=== PATIENT | male | born 1940 | race Caucasian/White ===

== ENCOUNTER 2025-06-22 12:16 | Day surgery (SDC) | payer MEDICARE ==
[2025-06-18 10:49] LABS: MEAN PLATELET VOLUME 7.0 FL (7.4-10.4); RED CELL DISTRIBUTION WIDTH 15.2 % (11.5-14.5)
[2025-06-18 10:57] LABS: APTT 32 SECONDS (22-32); INR 1.2 INR
[2025-06-18 11:00] LABS: CHOL/HDL RATIO 2.1 (0.00-4.99); CREATININE 0.99 MG/DL (0.60-1.10); LDL CHOLESTEROL 56 MG/DL (50-100); TOTAL CARBON DIOXIDE 33.7 MMOL/L (24-32); eGFR 72 ML/MIN
[2025-06-22] VITALS (9 sets, daily range): BP systolic 130–145; BP diastolic 62–75; PULSE 47–55; RESP 13–18; TEMP 97.4; O2SAT 90–96
[~2025-06-22] VITALS: Ht 185.4 cm; Wt 62.2 kg
--- NOTE | 2025-06-22 13:05 | ELECTROCARDIOGRAPH REPORT ---
[facility] Test Date: 2025-06-22 Test Time: 12:48:15 Pat Name: MARISSA CHRISTINE Department: PRE/OP CARDIOLOGY Patient ID: [facility]-[id number] Room: Gender: M Clinical Education Consultant: LIZZY : 1940 Requested By: HORACIO YOUSSEF Order Number: [id number] Reading MD: Dr. ROBIN Taylor Measurements Intervals [place] Rate: 43 P: 0 NM: 0 QRS: 86 QRSD: 127 T: 33 QT: 498 QTc: 422 Interpretive Statements A-flutter/fibrillation w/ complete AV block IVCD, consider atypical RBBB Electronically Signed On 06-22-2025 18:49:[address] ROBIN Taylor Please click the below link to view image of tracing.
[2025-06-22] MEDS ORDERED: MELA5CAP PO (13:24)
[2025-06-22] MEDS ORDERED: VITA-268 PO (13:24)
[2025-06-22] MEDS ORDERED: APIX5TAB3 PO (13:24)
[2025-06-22] MEDS ORDERED: verapamil 2.5 mg/ml inj IV ONE (15:15)
[2025-06-22] MEDS ORDERED: LIDOcaine 1% (10mg/ml) 2ml vial ONE (15:15)
[2025-06-22] MEDS ORDERED: heparin 1,000unit/ml 10ml vial 10 ML ONE (15:15)
[2025-06-22] MEDS ORDERED: nitroGLYCERIN 500mcg/5mL D5W 5 ML IV ONE (15:16)
[2025-06-22] MEDS ORDERED: midazolam 1 mg/ML 2ml injection ONE (15:36)
[2025-06-22] MEDS ORDERED: fentaNYL/PF 50MCG/1 ML 2ML syringe ONE (15:36)
[2025-06-22] MEDS ORDERED: LIDOcaine 1% 30ml preserv. free vial ONE (15:55)
[2025-06-22] MEDS: ondansetron/PF 4mg/2ml inj ONE (16:54)
[2025-06-22] MEDS ORDERED: HYDROcodone/acetaminophen 10/325mg tab PO PRN (17:00)
[2025-06-22] MEDS ORDERED: ondansetron/PF 4mg/2ml inj IV PRN (17:00)
[2025-06-22] MEDS ORDERED: OXAZEpam 15mg capsule PO PRN (17:00)
[2025-06-22] MEDS ORDERED: HYDROcodone/acetaminophen 5mg/325mg tablet PO PRN (17:00)
--- NOTE | 2025-07-18 09:04 | CARDIOLOGY REPORT ---
DATE OF SERVICE: 06/22/2025 DICTATING PHYSICIAN: Karli Garrett MD CARDIAC CATHETERIZATION REPORT DATE OF STUDY: 06/22/2025 PROCEDURES: * Access to the right radial artery. * Access to the right common femoral artery. * Aortic root angiography. * Selective coronary angiography. * Left ventriculography. * Conscious sedation monitoring time for 60 minutes. INDICATION: * Ascending aortic aneurysm. * Abnormal nuclear stress test. PHYSICIAN: Gilberto Garrett MD DESCRIPTION OF PROCEDURE: Access to the right radial artery was obtained. A catheter was advanced under fluoroscopic guidance into the ascending aorta and attempt at engaging the left main coronary artery was made with multiple catheters, but because of the patient's ascending aortic aneurysm, difficulty was encountered. Angiography revealed an enlarged ascending aorta. Access to the right femoral artery was then obtained.. Using a pigtail catheter followed by a JL4 and a JR4 catheter, selective coronary angiography was performed. HEMODYNAMICS: For the patient's hemodynamics, please refer to the event log. Left ventricular end diastolic pressure was 7 mmHg. There was no significant gradient across the aortic valve on catheter pullback. FINDINGS: The left main coronary artery is a short caliber vessel with mild disease. The left anterior descending coronary artery is a medium caliber vessel with diffuse 30-40% stenosis of the proximal and the entire mid LAD. Circumflex coronary arteries are normal caliber vessel with mild luminal irregularities. The right coronary artery is a large dominant vessel with 20-30% proximal and distal disease. Left ventriculography is a poor injection. Appears to be normal. Left ventricular end diastolic pressure is 7 mmHg. IMPRESSION: * Diffuse 40% stenosis of the proximal and entire mid LAD. * 20-30% stenosis of the proximal and distal RCA. * Left ventricular end diastolic pressure of 7 mmHg. Karli Garrett MD TID: [id number] RECEIPT: [id number] ALLAN/ALFREDA
== END 2025-06-22 19:58 | disposition home or self-care (01) ==
LOC: SSTAY O 12:16
PROVIDERS: ATTEND Student in an Organized Health Care Education/Training Program
DX: R94.39 Abnormal result of other cardiovascular function study (principal); I71.21 Aneurysm of the ascending aorta, without rupture; I25.10 Atherosclerotic heart disease of native coronary artery without angina pectoris; I48.91 Unspecified atrial fibrillation; G47.33 Obstructive sleep apnea (adult) (pediatric); I10 Essential (primary) hypertension; K21.9 Gastro-esophageal reflux disease without esophagitis; M19.90 Unspecified osteoarthritis, unspecified site; Z98.52 Vasectomy status; Z85.528 Personal history of other malignant neoplasm of kidney; Z98.890 Other specified postprocedural states; Z79.899 Other long term (current) drug therapy
CPT/HCPCS: 36415; 80048; 80061; 85025; 85610; 85730; 93005; 93458; 93567; 99152; 99153; A6258; C1894; J1644; J2003; J2250; J2405; J3010; J3490; J7030; Q9967; Z7610